=== PATIENT | male | born 1955 | race African-American/Black ===

== ENCOUNTER 2021-06-02 12:47 | Emergency (ER) | payer MEDICAID, OTHER ==
[~2021-06-02] VITALS: Ht 182.9 cm; Wt 85.0 kg
[~2021-06-02 12:47] MED LIST: AMOX1TAB61 PO; ATOR40TA59 PO; LIDO20SO PO; LISI-517 PO; METF850T8 PO; OMEP40CA7 PO; PRED20TA PO
[2021-06-02 12:52] VITALS: BP 123/76
[2021-06-02] MEDS ORDERED: AMOX500C PO (13:11)
[2021-06-02] MEDS ORDERED: METH4TAB2 PO (13:11)
--- NOTE | 2021-06-02 13:14 | PHYS DOC ---
Past Medical History Past Medical History: High Cholesterol, Hypertension, Stroke Past Surgical History: No Surgical History Smoking Status: Current Every Day Smoker Alcohol Use: Occasionally Drug Use: None General Adult EDM: Chief Complaint: SORE THROAT HPI: HPI: Patient is a 66 year old male who presents with sore throat for the last couple of days. He states he has been gargling with salt water and taking BC powder which helps. He states he wakes up in the night and his throat is sore again. States that he feels like his tonsils are swollen. Denies fever, chest pain, shortness of air, nausea, vomiting, diarrhea, headache, dizziness, syncope, focal weakness, numbness or tingling, cough. He has a history of high cholesterol, hypertension, smoker, stroke. He does state he has a lack of appetite but has been drinking plenty of fluid. He did get the [employer] Al[employer] vaccine. Review of Systems: Review of Systems: Constitutional: Denies fever or chills. [] Eyes: Denies change in visual acuity. [] HENT: Denies nasal congestion or +sore throat. [] Respiratory: Denies cough or shortness of breath. [] Cardiovascular: Denies chest pain or edema. [] GI: Denies abdominal pain, nausea, vomiting, bloody stools or diarrhea. [] : Denies dysuria. [] Musculoskeletal: Denies back pain or joint pain. [] Integument: Denies rash. [] Neurologic: Denies headache, focal weakness or sensory changes. [] Endocrine: Denies polyuria or polydipsia. [] Lymphatic: Denies swollen glands. [] Psychiatric: Denies depression or anxiety. [] Heart Score: C/O Chest Pain: No Risk Factors: Risk Factors: DM, Current or recent (<one month) smoker, HTN, HLP, family history of CAD, obesity. Risk Scores: Score 0 - 3: 2.5% MACE over next 6 weeks - Discharge Home Score 4 - 6: 20.3% MACE over next 6 weeks - Admit for Clinical Observation Score 7 - 10: 72.7% MACE over next 6 weeks - Early Invasive Strategies Allergies: Allergies: Allergies Coded Allergies Type Severity Reaction Last Updated Verified No Known Drug Allergies 09/03/16 No Physical Exam: PE: Constitutional: Well developed, well nourished, no acute distress, non-toxic appearance. [] HENT: Normocephalic, atraumatic, bilateral external ears normal, oropharynx moist, no oral exudates, nose normal. Tonsils 1+ with redness but no exudates. Eyes: PERRLA, EOMI, conjunctiva normal, no discharge. [] Neck: Normal range of motion, no tenderness, supple, no stridor. [] Cardiovascular:Heart rate regular rhythm, no murmur [] Lungs & Thorax: Bilateral breath sounds clear to auscultation [] Abdomen: Bowel sounds normal, soft, no tenderness, no masses, no pulsatile masses. [] Skin: Warm, dry, no erythema, no rash. [] Back: No tenderness, no CVA tenderness. [] Extremities: No tenderness, no cyanosis, no clubbing, ROM intact, no edema. [] Neurologic: Alert and oriented X 3, normal motor function, normal sensory function, no focal deficits noted. [] Psychologic: Affect normal, judgement normal, mood normal. [] Current Patient Data: Vital Signs: Vital Signs Date Time Temp Pulse Resp B/P (MAP) Pulse Ox O2 Delivery O2 Flow Rate FiO2 06/02/21 12:52 98.4 106 19 123/76 (92) 97 Room Air 98.4 EKG: EKG: [] Radiology/Procedures: Radiology/Procedures: [] Course & Med Decision Making: Course & Med Decision Making Pertinent Labs and Imaging studies reviewed. (See chart for details) COVID-19 CRITERIA: The patient was evaluated during the global COVID-19 pandemic, and that diagnosis was suspected/considered upon their initial presentation. Their evaluation, treatment and testing was consistent with current guidelines for patients who present with complaints or symptoms that may be related to COVID-19. See HPI. Alert and oriented x4. Ambulatory steady gait uses cane. Speaks in full clear sentences. No trismus. Uvula midline. Tonsils 1+ swollen with some redness but no exudates. Afebrile. Skin pink warm and dry. Strep throat positive. [] Dragon Disclaimer: Dragon Disclaimer: This electronic medical record was generated, in whole or in part, using a voice recognition dictation system. COVID-19 Patient Risks: Age 65 or older: Yes Sign of co-morbidity: Yes Exp to person + for COVID: No Exp to PUI: No Travel from affected area: No Lower respiratory symptoms: No Fever: No Other: Yes (LACK OF APPETITE) PPE Use: Full PPE with N95 mask or PAPR: Yes Departure Departure Impression: Primary Impression: Strep throat Additional Impression: Person under investigation for COVID-19 Disposition: 01 HOME / SELF CARE / HOMELESS Condition: STABLE Referrals: ADAMARIS NEAL (PCP) Patient Instructions: Strep Throat Additional Instructions: Take medication as prescribed and with food. Drink plenty of fluids. Follow-up with primary care provider. If at anytime you cannot breathe or swallow any kind of fluids or your saliva you need to return emergency room. Scripts Amoxicillin (AMOXICILLIN) 500 Mg Capsule 1 CAP PO BID, #20 CAP Prov: MARQUEZ MCNULTY APRN 06/02/21 Methylprednisolone (MEDROL) 4 Mg Tab.ds.pk 1 PKG PO UD, #1 PKG Prov: MARQUEZ MCNULTY APRN 06/02/21 MARQUEZ MCNULTY [employer] Jun 02, 2021 13:14
--- NOTE | 2021-06-04 12:15 | NUR ---
IP: Attempted to contact pt concerning covid results. No answer, left a voicemail to return the call.
--- NOTE | 2021-06-05 08:56 | NUR ---
IP: Attempted a second time to contact pt concerning covid test. No answer, again left a voicemail to return the call.
== END 2021-06-02 13:42 | disposition home or self-care (01) ==
LOC: ER 13:26
DX: U07.1 COVID-19 (principal); J02.0 Streptococcal pharyngitis; B95.0 Streptococcus, group A, as the cause of diseases classified elsewhere; I10 Essential (primary) hypertension; E78.00 Pure hypercholesterolemia, unspecified; F17.200 Nicotine dependence, unspecified, uncomplicated; Z86.73 Personal history of transient ischemic attack (TIA), and cerebral infarction without residual deficits
CPT/HCPCS: 87880; 99283; U0003; U0005